=== PATIENT | male | born 1995 | race African-American/Black ===

== ENCOUNTER 2020-02-27 07:45 | Inpatient (IN) ==
[2020-02-27 08:31] LABS: Urine Appearance Clear; Urine Bilirubin Negative (Negative); Urine Blood Negative (Negative); Urine Color Yellow; Urine Glucose Negative (Negative); Urine Ketones Negative (Negative); Urine Nitrite Negative (Negative); Urine Protein Negative (Negative); Urine Specific Gravity 1.024 (1.010-1.030); Urine Urobilinogen Negative (Negative)
[2020-02-27 08:46] LABS: Urine Benzodiazepine Screen None Detected (None Detect); Urine Cannabinoids Screen Presumptive Positive (None Detect); Urine Opiates Screen None Detected (None Detect)
[2020-02-27 08:57] LABS: ABS Basophils 0.1 10^3/ul (0-0.2); ABS Lymphocytes 1.8 10^3/ul (1.0-4.8); ABS Monocytes 0.8 10^3/ul (0-0.8); ABS Neutrophils 8.9 10^3/ul (1.5-7.7); Eosinophil % 0.4 %; Hematocrit 43 % (42-52); Hemoglobin 13.9 g/dL (14.0-18.0); Lymphocyte % 15.8 %; Mean Corpuscular HGB Conc 33 g/dL (31-36); Mean Corpuscular Hemoglobin 29 pg (27-31); Mean Corpuscular Volume 88 fL (80-94); Platelet Count 238 10^3/uL (150-450); Red Blood Count 4.86 10^6 /uL (4.18-5.48); Red Cell Distribution Width 13 % (10-15); White Blood Count 11.7 10^3/uL (3.5-10.8)
[2020-02-27 09:23] LABS: ALT 15 U/L (7-52); AST 21 U/L (13-39); Albumin 4.4 g/dL (3.2-5.2); Albumin/Globulin Ratio 1.5 (1-3); Alkaline Phosphatase 38 U/L (34-104); Anion Gap 6 mmol/L (2-11); BUN/Creatinine Ratio 10.8 (8-20); Blood Urea Nitrogen 10 mg/dL (6-24); CO2 Carbon Dioxide 24 mmol/L (22-32); Calcium 9.2 mg/dL (8.6-10.3); Chloride 107 mmol/L (101-111); EGFR African American 119.8 (>60); Globulin 2.9 g/dL (2-4); Glucose 89 mg/dL (70-100); Potassium 4.4 mmol/L (3.5-5.0); Sodium 137 mmol/L (135-145); Total Protein 7.3 g/dL (6.4-8.9)
[2020-02-27 09:24] LABS: Acetaminophen < 15 mcg/mL; Alcohol, S < 10 mg/dL (<10); Salicylate < 2.50 mg/dL (<30)
[2020-02-27 09:54] LABS: TSH Ultra Thyroid Stim Horm 1.59 mcIU/mL (0.34-5.60)
[2020-02-27] MEDS ORDERED: Al Hydrox/Mg Hydrox/Simet LIQ 30 ML UDC PO PRN (13:14)
[2020-02-28] MEDS: Vitamin THERAPEUTIC TAB PO SCH ×2 (11:48→11:51)
[2020-02-29] MEDS: Vitamin THERAPEUTIC TAB PO SCH (09:56)
[2020-02-29] MEDS ORDERED: Paliperidone SUSTENNA 234 MG/1.5 ML IM ONE (11:29)
[2020-03-01] MEDS: Vitamin THERAPEUTIC TAB PO SCH (12:12)
[2020-03-02] MEDS: Vitamin THERAPEUTIC TAB PO SCH (09:36)
[2020-03-03] MEDS: Vitamin THERAPEUTIC TAB PO SCH (07:58)
[2020-03-04] MEDS: Vitamin THERAPEUTIC TAB PO SCH (08:53)
[2020-03-05] MEDS ORDERED: Paliperidone SUSTENNA 234 MG/1.5 ML IM ONE (10:06)
[2020-03-05] MEDS: Vitamin THERAPEUTIC TAB PO SCH (13:35)
[2020-03-06] MEDS: Vitamin THERAPEUTIC TAB PO SCH (13:29)
[2020-03-07] MEDS: Vitamin THERAPEUTIC TAB PO SCH (09:10)
[2020-03-08] MEDS: Vitamin THERAPEUTIC TAB PO SCH (14:34)
[2020-03-09] MEDS: Vitamin THERAPEUTIC TAB PO SCH (07:56)
[2020-03-10] MEDS: Vitamin THERAPEUTIC TAB PO SCH (08:33)
[2020-03-11] MEDS: Vitamin THERAPEUTIC TAB PO SCH (08:19)
[2020-03-12] MEDS: Vitamin THERAPEUTIC TAB PO SCH (10:04)
[2020-03-13] MEDS: Vitamin THERAPEUTIC TAB PO SCH (10:52)
[2020-03-14] MEDS: Vitamin THERAPEUTIC TAB PO SCH (13:13)
[2020-03-15] MEDS: Vitamin THERAPEUTIC TAB PO SCH (08:43)
[2020-03-15] MEDS ORDERED: Paliperidone SUSTENNA 234 MG/1.5 ML IM ONE (13:56)
[2020-03-16] MEDS: Vitamin THERAPEUTIC TAB PO SCH (13:14)
[2020-03-17] MEDS: Vitamin THERAPEUTIC TAB PO SCH (10:45)
[2020-03-18] MEDS: Vitamin THERAPEUTIC TAB PO SCH (08:39)
[2020-03-19] MEDS ORDERED: Paliperidone SUSTENNA 156 MG/1 ML IM ONE (12:13)
[2020-03-19] MEDS: Vitamin THERAPEUTIC TAB PO SCH (13:10)
[2020-03-20] MEDS: Vitamin THERAPEUTIC TAB PO SCH (07:40)
[2020-03-21] MEDS: Vitamin THERAPEUTIC TAB PO SCH ×2 (08:41→10:47)
[2020-03-21 11:59] LABS: Mean Platelet Volume 9.4 fL (7.4-10.4); Platelet Count 248 10^3/uL (150-450)
[2020-03-21 12:12] LABS: HDL Cholesterol 46.8 mg/dL
[2020-03-22] MEDS: Vitamin THERAPEUTIC TAB PO SCH (08:28)
[2020-03-23] MEDS: Vitamin THERAPEUTIC TAB PO SCH (10:05)
[2020-03-24] MEDS: Vitamin THERAPEUTIC TAB PO SCH (09:51)
[2020-03-25] MEDS: Vitamin THERAPEUTIC TAB PO SCH (09:22)
[2020-03-26] MEDS: Vitamin THERAPEUTIC TAB PO SCH (08:29)
[2020-03-27] MEDS: Vitamin THERAPEUTIC TAB PO SCH (09:37)
[2020-03-28] MEDS: Vitamin THERAPEUTIC TAB PO SCH (08:53)
[2020-03-28] MEDS: Nicotine GUM 2MG FRUIT FLAVOR PO PRN (12:44)
[2020-03-29] MEDS: Vitamin THERAPEUTIC TAB PO SCH (08:56)
[2020-03-29] MEDS: Nicotine GUM 2MG FRUIT FLAVOR PO PRN ×3 (08:59→20:47)
[2020-03-30] MEDS: Vitamin THERAPEUTIC TAB PO SCH (09:39)
[2020-03-30] MEDS: Nicotine GUM 2MG FRUIT FLAVOR PO PRN ×3 (10:31→22:05)
[2020-03-31] MEDS: Vitamin THERAPEUTIC TAB PO SCH (09:43)
[2020-03-31] MEDS: Nicotine GUM 2MG FRUIT FLAVOR PO PRN ×4 (09:44→22:07)
[2020-04-01] MEDS: Vitamin THERAPEUTIC TAB PO SCH (09:47)
[2020-04-01] MEDS: Nicotine GUM 2MG FRUIT FLAVOR PO PRN ×2 (17:22→21:02)
[2020-04-02] MEDS: Vitamin THERAPEUTIC TAB PO SCH (08:58)
[2020-04-02] MEDS: Nicotine GUM 2MG FRUIT FLAVOR PO PRN ×2 (09:22→22:13)
[2020-04-03] MEDS: Vitamin THERAPEUTIC TAB PO SCH (10:48)
[2020-04-03] MEDS: Nicotine GUM 2MG FRUIT FLAVOR PO PRN ×2 (18:08→21:34)
[2020-04-04] MEDS: Vitamin THERAPEUTIC TAB PO SCH (10:39)
[2020-04-04] MEDS: Nicotine GUM 2MG FRUIT FLAVOR PO PRN (17:08)
[2020-04-05] MEDS: Vitamin THERAPEUTIC TAB PO SCH (10:01)
[2020-04-05] MEDS: Nicotine GUM 2MG FRUIT FLAVOR PO PRN ×2 (15:04→21:04)
[2020-04-06] MEDS: Vitamin THERAPEUTIC TAB PO SCH (09:22)
[2020-04-06] MEDS: Nicotine GUM 2MG FRUIT FLAVOR PO PRN ×2 (12:21→17:38)
[2020-04-07] MEDS: Vitamin THERAPEUTIC TAB PO SCH (10:07)
[2020-04-07] MEDS: Nicotine GUM 2MG FRUIT FLAVOR PO PRN (19:00)
[2020-04-08] MEDS: Vitamin THERAPEUTIC TAB PO SCH (07:44)
[2020-04-08] MEDS: Nicotine GUM 2MG FRUIT FLAVOR PO PRN ×3 (09:13→21:30)
[2020-04-09] MEDS: Vitamin THERAPEUTIC TAB PO SCH (08:04)
[2020-04-09] MEDS: Nicotine GUM 2MG FRUIT FLAVOR PO PRN (12:33)
[2020-04-10] MEDS: Vitamin THERAPEUTIC TAB PO SCH (09:57)
[2020-04-10] MEDS: Nicotine GUM 2MG FRUIT FLAVOR PO PRN ×2 (19:22→22:14)
[2020-04-10 21:34] VITALS: BP 128/65
[2020-04-11] MEDS: Vitamin THERAPEUTIC TAB PO SCH (12:16)
[2020-04-11] MEDS: Nicotine GUM 2MG FRUIT FLAVOR PO PRN (19:21)
[2020-04-12] MEDS: Vitamin THERAPEUTIC TAB PO SCH (13:53)
[2020-04-13] MEDS: Vitamin THERAPEUTIC TAB PO SCH (08:02)
[2020-04-13] MEDS: Nicotine GUM 2MG FRUIT FLAVOR PO PRN (18:53)
[2020-04-14] MEDS: Vitamin THERAPEUTIC TAB PO SCH (09:40)
[2020-04-14] MEDS ORDERED: Paliperidone SUSTENNA 156 MG/1 ML IM ONE (10:00)
[2020-04-14] MEDS: Nicotine GUM 2MG FRUIT FLAVOR PO PRN (21:35)
[2020-04-15] MEDS: Vitamin THERAPEUTIC TAB PO SCH (09:41)
== END 2020-04-15 12:00 | disposition short-term general hospital (02) | DRG 750 ==
LOC: ED 07:45 → MERGE 13:14 → BSU 13:14
PROVIDERS: ADMIT Psychiatry & Neurology Psychiatry; ATTEND Psychiatry & Neurology Psychiatry

== ENCOUNTER 2022-03-04 21:11 | Inpatient (IN) ==
[2022-03-04 22:26] LABS: Urine Benzodiazepine Screen None Detected (None Detect); Urine Cannabinoids Screen Presumptive Positive (None Detect); Urine Opiates Screen None Detected (None Detect)
[2022-03-04] MEDS ORDERED: OLANZapine 10 mg TAB*ODT PO ONE (23:06)
[2022-03-05] MEDS ORDERED: Al Hydrox/Mg Hydrox/Simet LIQ 30 ML UDC PO PRN (13:05)
[2022-03-05] MEDS ORDERED: Nicotine GUM 4MG FRUIT FLAVOR PO ONE (15:59)
[2022-03-05] MEDS ORDERED: Nicotine GUM 4MG FRUIT FLAVOR PO PRN (16:10)
[2022-03-05] MEDS: Nicotine GUM 2MG FRUIT FLAVOR PO PRN (21:37)
[2022-03-06] MEDS: Nicotine GUM 2MG FRUIT FLAVOR PO PRN ×2 (02:29→20:35)
[2022-03-06] MEDS: Vitamin THERAPEUTIC TAB PO SCH (10:39)
[2022-03-07 09:07] LABS: ABS Basophils 0.1 10^3/ul (0-0.2); ABS Monocytes 0.8 10^3/ul (0-0.8); ABS Neutrophils 3.9 10^3/ul (1.5-7.7); Eosinophil % 0.5 %; Hematocrit 46 % (42-52); Hemoglobin 14.8 g/dL (14.0-18.0); Lymphocyte % 38.8 %; Mean Corpuscular HGB Conc 33 g/dL (31-36); Mean Corpuscular Hemoglobin 29 pg (27-31); Mean Corpuscular Volume 89 fL (80-94); Red Blood Count 5.15 10^6 /uL (4.18-5.48); Red Cell Distribution Width 14 % (10-15); White Blood Count 7.8 10^3/uL (3.5-10.8)
[2022-03-07] MEDS: Vitamin THERAPEUTIC TAB PO SCH (09:07)
[2022-03-07 09:15] LABS: Albumin 4.8 g/dL (3.2-5.2); Albumin/Globulin Ratio 1.7 (1-3); Calcium 10.1 mg/dL (8.6-10.3); Globulin 2.9 g/dL (2-4); HDL Cholesterol 49.3 mg/dL; Potassium 4.8 mmol/L (3.5-5.0); Total Bilirubin 0.3 mg/dL (0.2-1.0); Total Protein 7.7 g/dL (6.4-8.9); eGFR CKD-EPI 118.5 (>60)
[2022-03-07 09:28] LABS: TSH Ultra Thyroid Stim Horm 1.41 mcIU/mL (0.34-5.60)
[2022-03-07 12:02] LABS: Mean Platelet Volume 9.7 fL (7.4-10.4); Platelet Count 251 10^3/uL (150-450)
[2022-03-08] MEDS: Vitamin THERAPEUTIC TAB PO SCH (09:37)
[2022-03-08] MEDS: Nicotine GUM 2MG FRUIT FLAVOR PO PRN (15:10)
[2022-03-08 22:10] VITALS: BP 128/69
[2022-03-09] MEDS: Vitamin THERAPEUTIC TAB PO SCH (10:03)
[2022-03-09] MEDS ORDERED: Paliperidone SUSTENNA 234 MG/1.5 ML IM ONE (10:56)
[2022-03-09] MEDS: Nicotine GUM 2MG FRUIT FLAVOR PO PRN (11:11)
== END 2022-03-09 13:09 | disposition home or self-care (01) | DRG 885 ==
LOC: ED 21:11 → EDHOLD 03-05 13:05 → BSU 03-05 15:06
PROVIDERS: ADMIT Psychiatry & Neurology Psychiatry; ATTEND Student in an Organized Health Care Education/Training Program